=== PATIENT | male | born 1960 | race Caucasian/White ===

== ENCOUNTER 2017-02-03 12:56 | Emergency (ER) | payer OTHER ==
[~2017-02-03] VITALS: Ht 182.9 cm; Wt 92.1 kg
[2017-02-03 13:15] VITALS: BP 135/73
[2017-02-03] MEDS: HYDROcodone/APAP 5/325MG 1 TAB TABLET PO ONE (13:41)
--- NOTE | 2017-02-03 14:28 | RAD ---
One or more of the following individualized dose reduction techniques were utilized for this examination: 1. Automated exposure control 2. Adjustment of the mA and/or kV according to patient size 3. Use of iterative reconstruction technique CT brain without contrast, CT cervical spine without contrast. History: Fell with head trauma, and denies loss of consciousness, Head and neck pain CT scan of brain was done without contrast. There is no intracranial hemorrhage or subdural hematoma. Ventricles are normal in size. There is no mass or shift of the midline. An acute CVA is not identified. Sinuses are clear. A skull fracture is not identified. CT cervical spine Axial CT images were obtained through the cervical spine. Sagittal and coronal reconstructed images were reviewed. There is no acute fracture. There is mild degenerative change with spurring. There is foraminal stenosis see at C5-6 on the left and C5-6 on the right. There is prominent spurring at C5-6. Impression: 1. Degenerative disc disease most prominent at C5-6 with prominent spurring and foraminal stenosis. 2. Milder degrees of disc space narrowing and spurring at C6-7. 3. No C-spine fracture noted. 4. No intracranial hemorrhage or acute finding noted intracranially.
--- NOTE | 2017-02-03 14:34 | PHYS DOC ---
Past Medical History Past Medical History: No Pertinent History Past Surgical History: Other Additional Past Surgical Histo: JAW Alcohol Use: Occasionally Drug Use: None Adult General Chief Complaint Chief Complaint: RIB PAIN HPI HPI Patient is a 56 year old male presents to the emergency department after participating in a obstacle course. Patient states he went to go over a log when he tripped and fell hitting his left ribs on the log. Patient does have abrasions noted on the rib area. He denies any shortness of air difficulty breathing. He is unsure whether he had his head or not. He does however states that he has muscle spasms on the left side of his neck and on the left act area. He denies any nausea vomiting. He denies any loss of bowel or bladder. Patient is alert and oriented. Review of Systems Review of Systems Constitutional: Denies fever or chills [] Eyes: Denies change in visual acuity, redness, or eye pain [] HENT: Denies nasal congestion or sore throat [] Respiratory: Denies cough or shortness of breath complaint of left rib pain Cardiovascular: No additional information not addressed in HPI [] GI: Denies abdominal pain, nausea, vomiting, bloody stools or diarrhea [] : Denies dysuria or hematuria [] Musculoskeletal: Complaining of left neck pain and left back pain denies any joint pain Integument: Denies rash or skin lesions [] Neurologic: Denies headache, focal weakness or sensory changes [] Endocrine: Denies polyuria or polydipsia [] Current Medications Current Medications Current Medications Medications (Trade) Dose Ordered Sig/Janice Start Time Stop Time Status Last Admin Dose Admin Acetaminophen/ Hydrocodone Bitart (Lortab 5/325) 2 tab 1X ONCE 02/03/17 13:30 02/03/17 13:37 DC 02/03/17 13:41 2 TAB Lidocaine (Lidoderm) 1 patch DAILY 02/03/17 15:15 Allergies Allergies Allergies Coded Allergies Type Severity Reaction Last Updated Verified No Known Drug Allergies 02/03/17 No Physical Exam Physical Exam Constitutional: Well developed, well nourished, no acute distress, non-toxic appearance. [] HENT: Normocephalic, atraumatic, bilateral external ears normal, oropharynx moist, no oral exudates, nose normal. [] Eyes: PERRLA, EOMI, conjunctiva normal, no discharge. [] Neck: Normal range of motion, no tenderness, supple, no stridor. [] Cardiovascular:Heart rate regular rhythm, no murmur [] Lungs & Thorax: Bilateral breath sounds clear to auscultation. Equal chest expansion noted bilaterally. Skin: Warm, dry, no erythema, no rash. Patient was noted to have bruising on the left lateral and posterior ribs. Ribs may have a slight deformity noted upon palpation however no crepitus noted. Back: No cervical spine, thoracic spine or lumbar spine tenderness, tenderness was noted on the paraspinal areas of the cervical spine. No CVA tenderness. [] Extremities: No tenderness, no cyanosis, no clubbing, ROM intact, no edema. Patient is able to move all extremities without difficulty. Neurologic: Alert and oriented X 3, normal motor function, normal sensory function, no focal deficits noted. [] Psychologic: Affect normal, judgement normal, mood normal. [] Current Patient Data Vital Signs Vital Signs Date Time Temp Pulse Resp B/P (MAP) Pulse Ox O2 Delivery O2 Flow Rate FiO2 02/03/17 13:41 Room Air 02/03/17 13:15 97.4 60 16 100 97.4 EKG EKG [] Radiology/Procedures Radiology/Procedures [][facility] [address] [place] [address] IMAGING REPORT Signed PATIENT: ESEQUIEL DE ACCOUNT: [id number] : 1960 LOCATION: ER AGE: 56 SEX: M EXAM STATUS: REG ER ORD. PHYSICIAN: BART MAYA APRN REASON: fell hit head denies LOC PROCEDURE: CT HEAD AND CERVICAL SPINE WO One or more of the following individualized dose reduction techniques were utilized for this examination: 1. Automated exposure control 2. Adjustment of the mA and/or kV according to patient size 3. Use of iterative reconstruction technique CT brain without contrast, CT cervical spine without contrast. History: Fell with head trauma, and denies loss of consciousness, Head and neck pain CT scan of brain was done without contrast. There is no intracranial hemorrhage or subdural hematoma. Ventricles are normal in size. There is no mass or shift of the midline. An acute CVA is not identified. Sinuses are clear. A skull fracture is not identified. CT cervical spine Axial CT images were obtained through the cervical spine. Sagittal and coronal reconstructed images were reviewed. There is no acute fracture. There is mild degenerative change with spurring. There is foraminal stenosis see at C5-6 on the left and C5-6 on the right. There is prominent spurring at C5-6. Impression: 1. Degenerative disc disease most prominent at C5-6 with prominent spurring and foraminal stenosis. 2. Milder degrees of disc space narrowing and spurring at C6-7. 3. No C-spine fracture noted. 4. No intracranial hemorrhage or acute finding noted intracranially. DICTATED and SIGNED BY: FEMI LEACH MD DATE: 02/03/17 1421 CC: BART MAYA APRN; NON,STAFF; UNKNOWN PCP NAME ~ [facility] [address] [place] [address] IMAGING REPORT Signed PATIENT: ESEQUIEL DE ACCOUNT: [id number] : 1960 LOCATION: ER AGE: 56 SEX: M EXAM STATUS: REG ER ORD. PHYSICIAN: BART MAYA APRN REASON: rib pain afterb fall PROCEDURE: RIBS LEFT AND PA CHEST Left RIBS with PA chest. History: Rib pain after a fall PA view was taken of the chest. There is no pneumothorax or pleural effusion. Heart is normal in size. There is slight scoliosis. There are no acute infiltrates. PA and oblique views were taken of the left ribs. There are fractures of the posterior seventh and posterior eighth left ribs. There may also be a nondisplaced fracture of the left fifth posterior rib. There is mild deformity of the anterior lateral left fifth rib. There are no old studies for comparison. Impression: 1. Left rib fractures. 2. No pneumothorax or pleural effusion. DICTATED and SIGNED BY: FEMI LEACH MD DATE: 02/03/17 1437 CC: BART MAYA APRN; NON,STAFF; UNKNOWN PCP NAME ~ Course & Med Decision Making Course & Med Decision Making Pertinent Labs and Imaging studies reviewed. (See chart for details) Patient was provided with [place] here in the emergency department. Patient discharged home with recommendations for Percocet as needed for severe pain and discomfort. He'll also be provided with Flexeril in which she was instructed that Percocet and Flexeril will cause extreme drowsiness. Recommended ice packs on 20 minutes off 20 minutes several times a day. Also ibuprofen 800 mg every 8 hours. Patient will have a Lidoderm patch placed over the area as well. Patient will be discharged home in stable condition. He will be provided with an incentive spirometer to take breath deep breaths every 2 hours. Patient will be provided with a copy of his x-rays as he lives in [place]. Patient and significant other agree with all discharge instructions treatment regimens and follow-up recommendations. Patient was also instructed that he would not be able to drive or do anything that requires him to be alert and oriented when taking the Percocet or the Flexeril. [] Dragon Disclaimer Dragon Disclaimer This electronic medical record was generated, in whole or in part, using a voice recognition dictation system. Departure Departure Impression: Primary Impression: Multiple fractures of ribs Disposition: 01 HOME, SELF-CARE Condition: STABLE Referrals: UNKNOWN PCP NAME (PCP) Patient Instructions: Rib Fracture, [id number] Additional Instructions: Activity as tolerate Medication as prescribed Percocet as needed for pain this medication will cause drowsiness do not take if you need to be alert and oriented Flexeril as needed for muscle spasm this medication will cause drowsiness do not take if you need to be alert and oriented Ice packs on 20 minutes and off 20 minutes several times a day Use the incentive spirometer every 2 horus Followup with your primary care provider in 3-5 days Return to emergency department as needed for signs and symptoms that become worse. Scripts Lidocaine (Lidocaine) 1 Each Adh..patch 1 EACH TP DAILY for 7 Days, #7 PATCH Prov: BART MAYA APRN 02/03/17 Ibuprofen (IBUPROFEN) 800 Mg Tablet 800 MG PO PRN Q6HRS Y for INFLAMMATION, #30 TAB Prov: BART MAYA APRN 02/03/17 Oxycodone/Apap 5-325 (PERCOCET 5-325 MG TABLET) 1 Each Tablet 1-2 TAB PO Q4-6HRS, #20 TAB Prov: BART MAYA APRN 02/03/17 Problem Qualifiers Primary Impression: Multiple fractures of ribs Encounter type: initial encounter Fracture type: closed Laterality: left Qualified Codes: S22.42XA - Multiple fractures of ribs, left side, initial encounter for closed fracture BART MAYA APRN Feb 03, 2017 14:34
--- NOTE | 2017-02-03 14:42 | RAD ---
Left RIBS with PA chest. History: Rib pain after a fall PA view was taken of the chest. There is no pneumothorax or pleural effusion. Heart is normal in size. There is slight scoliosis. There are no acute infiltrates. PA and oblique views were taken of the left ribs. There are fractures of the posterior seventh and posterior eighth left ribs. There may also be a nondisplaced fracture of the left fifth posterior rib. There is mild deformity of the anterior lateral left fifth rib. There are no old studies for comparison. Impression: 1. Left rib fractures. 2. No pneumothorax or pleural effusion.
[2017-02-03] MEDS ORDERED: LIDO700A39 TP (15:11)
[2017-02-03] MEDS ORDERED: OXYC-323 PO (15:11)
[2017-02-03] MEDS ORDERED: IBUP-1060 PO (15:11)
[2017-02-03] MEDS: LIDOCAINE (700MG/PATCH) PATCH. TD SCH (15:56)
== END 2017-02-03 15:56 | disposition home or self-care (01) ==
LOC: ER 12:56
DX: S22.42XA Multiple fractures of ribs, left side, initial encounter for closed fracture (principal); W01.0XXA Fall on same level from slipping, tripping and stumbling without subsequent striking against object, initial encounter; Y93.89 Activity, other specified; Y99.8 Other external cause status; Y92.89 Other specified places as the place of occurrence of the external cause
CPT/HCPCS: 70450; 71101; 72125; 99284-25